=== PATIENT | female | born 2000 | race Hispanic/Latino ===

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

== ENCOUNTER 2021-09-22 18:15 | Observation (INO) | payer MEDICAID, OTHER ==
[~2021-09-22] VITALS: Ht 149.9 cm; Wt 52.6 kg
[~2021-09-22 18:15] MED LIST: PNV1TABL17 PO
[2021-09-22 18:52] LABS: APPEARANCE,URINE Clear (CLEAR); BILIRUBIN,URINE Negative (NEGATIVE); COLOR,URINE Yellow (YELLOW); GLUCOSE, URINE (UA) Negative (NEGATIVE); KETONES,URINE 15 mg/dL (NEGATIVE); LEUKOCYTE ESTERASE ,URINE Small (NEGATIVE); NITRATE,URINE Negative (NEGATIVE); OCCULT BLOOD,URINE Negative (NEGATIVE); PH,URINE 7.5 (5.0-8.0); PROTEIN,URINE Negative (NEGATIVE)
[2021-09-22 19:04] VITALS: BP 116/78
[2021-09-22 19:04] LABS: BACTERIA,URINE Few /HPF (None Seen); MUCUS,URINE Moderate LPF (None Seen); RBC,URINE 0-1 /HPF (0-1); SQUAMOUS EPITHELIAL CELL,UR Moderate /HPF (0-2)
[2021-09-22] MEDS ORDERED: ONDANSETRON 4MG INJ IVP ONE (20:00)
[2021-09-22] MEDS ORDERED: PANTOPRAZOLE 40 MG/VIAL IVP ONE (20:00)
[2021-09-22] MEDS ORDERED: ONDANSETRON 4MG INJ ONE (20:07)
[2021-09-22] MEDS: LACTATED RINGERS 1000ML 1,000 ML IV SCH ×2 (20:15→20:46)
[2021-09-22] MEDS ORDERED: LACTATED RINGERS 1000ML 1,000 ML IV SCH (20:30)
[2021-09-22] MEDS ORDERED: TERBUTALINE SULFATE VIAL 1MG/ML SQ SCH (20:30)
[2021-09-22] MEDS: TERBUTALINE SULFATE VIAL 1MG/ML SQ SCH ×2 (21:16→22:20)
== END 2021-09-22 23:40 | disposition home or self-care (01) ==
LOC: EDH 18:15 → LDH 18:16 → EDH 18:22
PROVIDERS: ADMIT Obstetrics & Gynecology; ATTEND Obstetrics & Gynecology
DX: O21.2 Late vomiting of pregnancy (principal); O26.893 Other specified pregnancy related conditions, third trimester; R10.9 Unspecified abdominal pain; Z3A.31 31 weeks gestation of pregnancy
CPT/HCPCS: 59025; 81001; 96361; 96372 ×3; 96374; 96375; C9113; G0378 ×5; G0379; J2405; J3105; 96360

== ENCOUNTER 2023-04-15 22:59 | Emergency (ER) | payer MEDICAID ==
[~2023-04-15] VITALS: Ht 149.9 cm; Wt 45.4 kg
[~2023-04-15 22:59] MED LIST changes: +DOCU-116 PO; +IBUP-2077 PO
[2023-04-15 23:26] LABS: BASOPHILS # (AUTO) 0.04 K/uL (0.00-0.20); BASOPHILS % (AUTO) 0.5 % (0.0-5.0); EOSINOPHILS # (AUTO) 0.11 K/uL (0.00-0.70); EOSINOPHILS % (AUTO) 1.5 % (0.0-8.0); HEMATOCRIT 37.8 % (36-48); IMMATURE GRANULOCYTE ABSOLUTE 0.02 K/uL (0-1); LYMPHOCYTES # (AUTO) 0.8 K/uL (1.0-4.8); LYMPHOCYTES % (AUTO) 10.9 % (21.0-51.0); MEAN CORPUSCULAR HEMOGLOBIN 25.9 pg (27.0-33.0); MEAN CORPUSCULAR HGB CONC 31.7 g/dL (32.0-36.0); MEAN CORPUSCULAR VOLUME 81.5 fL (80-100); MONOCYTES # (AUTO) 0.4 K/uL (0.1-1.0); MONOCYTES % (AUTO) 5.5 % (3.0-13.0); NEUTROPHILS # (AUTO) 6.1 K/uL (1.8-7.7); NEUTROPHILS % (AUTO) 81.3 % (40.0-77.0); PLATELET COUNT (AUTO) 247 K/uL (130-400); RED BLOOD CELL COUNT(AUTO) 4.64 MIL/uL (4.00-5.50); RED CELL DISTRIBUTION WIDTH 15.3 % (11.0-15.5); WHITE BLOOD COUNT (AUTO) 7.5 K/uL (4.8-10.8)
[2023-04-15] MEDS ORDERED: ACETAMINOPHEN 500 MG TABLET ONE (23:26)
[2023-04-15] MEDS ORDERED: ONDANSETRON 4MG INJ ONE (23:26)
[2023-04-15 23:30] LABS: APPEARANCE,URINE CLEAR (CLEAR); BILIRUBIN,URINE NEGATIVE (NEGATIVE); COLOR,URINE LIGHT-YELLOW (YELLOW); GLUCOSE, URINE (UA) NEGATIVE (NEGATIVE); KETONES,URINE 20 mg/dL (NEGATIVE); LEUKOCYTE ESTERASE ,URINE 25 Leu/uL (NEGATIVE); NITRATE,URINE NEGATIVE (NEGATIVE); OCCULT BLOOD,URINE NEGATIVE (NEGATIVE); PROTEIN,URINE NEGATIVE (NEGATIVE); UROBILINOGEN,URINE 0.2 mg/dL (0.2-1.0)
[2023-04-15] MEDS ORDERED: ONDANSETRON 4MG INJ IVP ONE (23:30)
[2023-04-15] MEDS ORDERED: MORPHINE 4 MG SYG IVP ONE (23:30)
[2023-04-15] MEDS ORDERED: 0.9%NACL 1000ML 2,000 ML IV ONE (23:30)
[2023-04-15 23:31] LABS: ADD UA MICROSCOPIC YES
[2023-04-15 23:32] LABS: HCG,QUALITATIVE URINE NEGATIVE (NEGATIVE)
[2023-04-15 23:34] LABS: MUCUS,URINE RARE LPF (None Seen); RBC,URINE 0-1 /HPF (0-1); SQUAMOUS EPITHELIAL CELL,UR RARE /HPF (0-2)
[2023-04-15 23:36] LABS: CREATININE 0.6 mg/dL (0.5-1.5); POTASSIUM 3.7 mmol/L (3.5-5.1)
[2023-04-15 23:37] VITALS: TEMP 100.8
[2023-04-15 23:39] LABS: RAPID GROUP A STREP negative (NEGATIVE)
[2023-04-15 23:43] LABS: SARS-CoV-2, RNA, NAAT NEGATIVE SARS CoV-2 (NEGATIVE)
[2023-04-15 23:47] LABS: ALBUMIN 4.6 g/dL (3.5-5.0); BILIRUBIN,TOTAL 0.4 mg/dL (0.2-1.0); TOTAL PROTEIN, SERUM 8.4 g/dL (6.0-8.3)
[2023-04-15 23:48] LABS: INFLUENZA TYPE B Negative For Type B (NEGATIVE)
[2023-04-16 00:01] LABS: INFLUENZA TYPE A Positive For Type A (NEGATIVE)
[2023-04-16 00:30] VITALS: BP 127/74; PULSE 89; RESP 20; O2SAT 100
[2023-04-16] MEDS ORDERED: ONDA-104 PO (00:32)
[2023-04-16] MEDS ORDERED: OSEL75 PO (00:32)
[2023-04-16] MEDS ORDERED: OMEP40CA21 PO (00:32)
[2023-04-16] MEDS ORDERED: IBUP-1493 PO (00:32)
== END 2023-04-16 00:47 | disposition home or self-care (01) ==
LOC: EDH 22:59
DX: J11.1 Influenza due to unidentified influenza virus with other respiratory manifestations (principal); K52.9 Noninfective gastroenteritis and colitis, unspecified; Z20.822 Contact with and (suspected) exposure to COVID-19
CPT/HCPCS: 99284; 96374; 87635; 96375; 80053; 83690; 85025; 87880; 87804 ×2; 83605; 81001; 81025; 36415; 93005; C9803; J2405; J2270